=== PATIENT | female | born 1955 | race Two or more races ===

== ENCOUNTER 2018-10-22 14:37 | Emergency (ER) | payer MEDICAID ==
[~2018-10-22] VITALS: Ht 162.6 cm; Wt 72.6 kg
[2018-10-22] MEDS ORDERED: LEXAPRO10 MG ORAL (14:51)
[2018-10-22] MEDS ORDERED: RISPERDAL2 MG ORAL (14:51)
[2018-10-22] MEDS ORDERED: PERI-COLACE1 EA ORAL (15:02)
[2018-10-22] MEDS ORDERED: LD2JL30 TOPIC (15:02)
--- NOTE | 2018-10-22 15:07 | Emergency Room Report ---
History of Present Illness General Chief Complaint: General Complaint Source: Medical Record Present Illness Allergies: Coded Allergies: No Known Allergies (Unverified , 10/22/18) Patient History PMH Narrative Disclaimer: Please note that this report is being documented using [employer] technology. This can lead to erroneous entry secondary to incorrect interpretation by the dictating instrument. HPI: 63-year-old female with a history of schizophrenia presents from her assisted living facility for evaluation of hemorrhoids. The patient states she has had rectal pain while passing stools for the past week and intermittently will notice bright blood on the tissue. She has a history of external hemorrhoids but denies any history of thrombosed hemorrhoids or internal hemorrhoids to her knowledge. No prior GI evaluation for hemorrhoids. She denies any fevers, chills, abdominal pain, nausea, vomiting. She has noticed loose stools intermittently though not for the past week. She has been using some vrju-dom-nbycwkw suppository but cannot state what type of medication it is or what its function is. States she has had no relief. She noticed worsening pain today. PMH: Schizophrenia PSH: See chart Allergies: Denies Social Hx: Denies drug or alcohol abuse Nursing Documentation-PMH Past Medical History: No History, Except For History Of Psychiatric Problem: Yes - Schizophrenia Review of Systems All Other Systems: negative except mentioned in HPI Physical Exam Vital Signs Date Time Temp Pulse Resp B/P (MAP) Pulse Ox O2 Delivery O2 Flow Rate FiO2 10/22/18 14:44 98.8 68 15 141/88 (105) 99 Room Air General: Awake and alert, no acute distress, sitting comfortably over the edge of the bed upright HEENT: NC/AT. EOMI. Resp: Normal work of breathing. Abdomen: Abdomen is soft, nondistended. Nontender Rectal: No external or internal hemorrhoids appreciated. Rectal vault has soft stool without melena. No skin tears. No bright red blood. Skin: Intact. No abrasions, laceration or rash over the exposed skin MSK: Normal tone and bulk. Moving all extremities. No obvious deformity. Neuro: Awake and alert. Mentating appropriately. Medical Decision Making Diagnostic Impression: Primary Impression: Rectal pain ER Course 63-year-old female presents for evaluation of rectal pain. The patient does not have any obvious large external or palpable internal hemorrhoids and I do not see any skin tears or ulcerations. She has non melanotic stool in the rectal vault and is sitting upright without obvious discomfort. We will prescribe her topical pain relieving medication a stool softener and she can follow-up with PMD and possible referral to GI as needed. She denies any bleeding currently or any other symptoms. Will discharge home with outpatient follow-up. Do not believe lab work or imaging is indicated at this time. She is otherwise in stable condition has no other complaints. Last Vital Signs Date Time Temp Pulse Resp B/P (MAP) Pulse Ox O2 Delivery O2 Flow Rate FiO2 10/22/18 14:50 68 15 Room Air 10/22/18 14:44 98.8 141/88 (105) 99 Disposition: HOME, SELF-CARE Condition: Stable Scripts Docusate Sod/Senna (Docusate Sodium-Senna Tablet) 1 Each Tablet 1 CAP ORAL TWICE A DAY for 5 Days, #10 CAP 0 Refills Prov: Villa Patel MD 10/22/18 Lidocaine HCL 2% Jelly* (Lidocaine Jelly 2%*) 5 Ml Jel.pf.tristin 5 ML TOPIC DAILY for 7 Days, ML Prov: Villa Patel MD 10/22/18 Referrals: Skyler Balderrama [facility] Patient Instructions: Hemorrhoids Additional Instructions: Your evaluated in the emergency department today for possible hemorrhoids and will be started on a stool softener as well as pain relieving cream. Please follow-up with 1 of the doctors listed here in your discharge paperwork. If you notice significant rectal bleeding, worsening pain, high fevers, vomiting, diarrhea or any other sudden change in your health please discuss with your doctor or return to the emergency department for reevaluation. Villa Patel MD Oct 22, 2018 15:07
--- NOTE | 2018-10-22 15:07 | NUR ---
ED Nurse Note:PT. WAS biba FROM SNF with c/o light rectal bleed yesterday from hemohrroids, pt. was examed by ER MD in my presence, VSS, skin is intact, pt. is A/Ox4
--- NOTE | 2018-10-22 16:05 | NUR ---
ED Nurse Note:called to [facility] and notified staff Yehuda about pt. coming back today
[2018-10-22 16:06] VITALS: BP 141/88
[2018-10-22 19:30] VITALS: BP 141/88
--- NOTE | 2018-10-22 19:30 | NUR ---
ER DISCHARGE NOTE: PRESCRIPTIONS AND DISCHARGE PAPERWORK EXPLAINED TO PT. PT VERBALIZES UNDERSTANDING AND ALL QUESTIONS ANSWERED. PRESCRIPTIONS AND DISCHARGE PAPERWORK GIVEN TO PT AND ID WRISTBAND REMOVED. PT TRANSPORTED BACK TO FACILITY BY BLS, LEFT WITH ALL BELONGINGS.
== END 2018-10-22 19:30 | disposition home or self-care (01) ==
LOC: EDBD 14:37 → EMR 15:00
DX: K62.89 Other specified diseases of anus and rectum (principal); F20.9 Schizophrenia, unspecified
CPT/HCPCS: 99283